=== PATIENT | male | born 1945 | race Caucasian/White ===

== ENCOUNTER 2016-06-01 18:01 | Emergency (ER) | payer OTHER, MEDICARE ==
[~2016-06-01] VITALS: Ht 188 cm; Wt 83.5 kg
[~2016-06-01 18:01] MED LIST: CREON PO; LANTUSP SQ; PIOG15 PO; PRIN5TAB PO; TAMS0.4C67 PO
[2016-06-01 18:02] VITALS: BP 150/62; PULSE 111; RESP 14; TEMP 99.4; O2SAT 96
[2016-06-01] MEDS ORDERED: CREO3000 PO (21:49)
[2016-06-01] MEDS ORDERED: LANTUS2P SQ (21:51)
[2016-06-01] MEDS ORDERED: LEVO25TA4 PO (21:51)
[2016-06-01] MEDS ORDERED: LISI-519 PO (21:51)
[2016-06-01] MEDS ORDERED: NOVORP2 SQ (21:52)
[2016-06-01] MEDS ORDERED: FINA5TAB2 PO (21:53)
[2016-06-01] MEDS ORDERED: SODIUM CHLORID 0.9% 500 ML INJ 500 ML IV ONE (22:00)
--- NOTE | 2016-06-01 22:19 | PD ---
HPI Chief Complaint: Pain: Acute or Chronic Time Seen by Provider: 21:44 Travel History International Travel<30 days: No Contact w/Intl Traveler<30days: No Traveled to known affect area: No History of Present Illness HPI Patient is a 70 year old male who comes in complaining of pain to his right thigh. He says it started about 1PM today. He says he has been walking a lot lately, but the pain started while he was sitting and watching television. He says that the pain is sharp and he localizes it to the top of his thigh just above the knee. He denies any injuries. He denies any chest pain or SOB. He says he came in because he was concerned about a blood clot because he says his dad of a stroke 7 years ago. He has no history of blood clots in the past. He denies recent travel. He has not had any swelling to his legs. PFSH Past Medical History Heart Rhythm Problems: No Cancer: Yes (PANCREAS) Cardiac Catheterization: No Cardiovascular Problems: No High Cholesterol: No Congestive Heart Failure: No Diabetes: No Hypertension: No Myocardial Infarction: No Past Surgical History Abdominal Surgery: Yes (1/3 OF PANCREASE REMOVED/ SOME SMALL INTESTINE REMOVED / WHIPPLE PROCEDURE) Cholecystectomy: Yes (POSSIBLY REMOVED WITH WHIPPLE PROCEDURE) Coronary Artery Bypass Graft: No Genitourinary Surgery: Yes (LEFT SCROTAL MASS REMOVED) Social History Alcohol Use: No Tobacco Use: No Substance Use: No Allergies-Medications (Allergen,Severity, Reaction): Coded Allergies: Heparin (Verified Allergy, Severe, BLEEDING, 06/01/16) Reported Meds & Prescriptions Reported Meds & Active Scripts Active Reported Finasteride 5 Mg Tab 5 Mg PO DAILY Do not crush. Levothyroxine (Levothyroxine Sodium) 25 Mcg Tab 25 Mcg PO DAILY Lisinopril 5 Mg Tab 5 Mg PO DAILY Lantus Inj (Insulin Glargine) 1,000 Unit/10 Ml Vial 25 Units SQ HS Creon (Pancrelipase) 3,000-9,500-15,000 Units Cap 1 Cap PO TIDPC Review of Systems Except as stated in HPI: all other systems reviewed are Neg General / Constitutional: No: Fever, Chills HENT: No: Headaches, Lightheadedness Cardiovascular: No: Chest Pain or Discomfort Respiratory: No: Shortness of Breath Gastrointestinal: No: Nausea, Vomiting Musculoskeletal: Positive: Pain, No: Edema Skin: No Rash, No Change in Pigmentation Neurologic: No: Weakness, Dizziness Physical Exam Narrative GENERAL: Awake and alert in no acute distress. SKIN: Warm and dry. HEAD: Atraumatic. Normocephalic. EYES: Pupils equal and round. No scleral icterus. ENT: Mucous membranes pink and moist. NECK: Trachea midline. No JVD. CARDIOVASCULAR: Regular rate and rhythm. No murmur appreciated. RESPIRATORY: No accessory muscle use. Clear to auscultation. Breath sounds equal bilaterally. MUSCULOSKELETAL: No obvious deformities. No clubbing. No cyanosis. No edema. No tenderness to palpation of the right calf or right thigh. Patient has full range of motion of the right hip and right knee. He has some pain with movement of the right leg. Pedal pulses are intact. NEUROLOGICAL: Awake and alert. No obvious cranial nerve deficits. Motor grossly within normal limits. Normal speech. Data Data Last Documented VS Vital Signs Date Time Temp Pulse Resp B/P Pulse Ox O2 Delivery O2 Flow Rate FiO2 06/01/16 21:45 85 20 06/01/16 18:02 99.4 150/62 96 Room Air Orders Us Leg Venous Doppler (06/01/16 ) Complete Blood Count With Diff (06/01/16 21:52) Comprehensive Metabolic Panel (06/01/16 21:52) Creatine Kinase (Cpk) (06/01/16 21:52) Sodium Chlorid 0.9% 500 Ml Inj (Ns 500 M (06/01/16 22:00) Ketorolac Inj (Toradol Inj) (06/02/16 00:15) Labs Laboratory Tests Test 06/01/16 22:00 White Blood Count 8.4 TH/MM3 Red Blood Count 4.12 MIL/MM3 Hemoglobin 12.7 GM/DL Hematocrit 37.9 % Mean Corpuscular Volume 92.1 FL Mean Corpuscular Hemoglobin 30.9 PG Mean Corpuscular Hemoglobin 33.6 % Concent Red Cell Distribution Width 12.8 % Platelet Count 180 TH/MM3 Mean Platelet Volume 7.8 FL Neutrophils (%) (Auto) 80.0 % Lymphocytes (%) (Auto) 10.2 % Monocytes (%) (Auto) 8.5 % Eosinophils (%) (Auto) 0.8 % Basophils (%) (Auto) 0.5 % Neutrophils # (Auto) 6.7 TH/MM3 Lymphocytes # (Auto) 0.9 TH/MM3 Monocytes # (Auto) 0.7 TH/MM3 Eosinophils # (Auto) 0.1 TH/MM3 Basophils # (Auto) 0.0 TH/MM3 CBC Comment DIFF FINAL Differential Comment Sodium Level 134 MEQ/L Potassium Level 4.1 MEQ/L Chloride Level 98 MEQ/L Carbon Dioxide Level 27.2 MEQ/L Anion Gap 9 MEQ/L Blood Urea Nitrogen 24 MG/DL Creatinine 1.64 MG/DL Estimat Glomerular Filtration 42 ML/MIN Rate Random Glucose 396 MG/DL Calcium Level 8.4 MG/DL Total Bilirubin 0.5 MG/DL Aspartate Amino Transf 31 U/L (AST/SGOT) Alanine Aminotransferase 60 U/L (ALT/SGPT) Alkaline Phosphatase 98 U/L Total Creatine Kinase 125 U/L Total Protein 6.7 GM/DL Albumin 3.7 GM/DL MDM Medical Decision Making Medical Screen Exam Complete: Yes Emergency Medical Condition: Yes Differential Diagnosis Muscle strain versus DVT versus cellulitis Narrative Course Patient is a 70-year-old male comes in complaining of right leg pain. Exam shows no swelling, no erythema or warmth. Patient does have pain with movement of his leg. IV established, labs sent. Labs show a creatinine of 1.6. Ultrasound performed of the right leg shows no evidence of DVT. Patient informed of his creatinine level. Advised follow-up with his primary doctor regarding this. He understands and will see his doctor. His sugar was also elevated, he was given IV fluids. Advised to continue his diabetes medications at home. Patient advised to increase his water intake. Advised to take Tylenol as needed for pain. Advised to apply ice or heat, and stretch the leg. His pain is likely muscular. Patient advised to return to the ED as needed for any worsening symptoms. He is comfortable with discharge at this time. Diagnosis Primary Impression: Leg pain Qualified Code: M79.604 - Pain of right lower extremity Patient Instructions: General Instructions, Leg Pain (ED) Additional Instructions: Take Tylenol as needed for pain. You can apply ice or heat to the muscle. Make sure to stretch your leg often. Your Creatinine was elevated today ( kidney function test) to 1.6. You need to follow up with your doctor regarding this. Return to the ED as needed for any worsening symptoms. Disposition: 01 DISCHARGE HOME Condition: Stable Gershen,Edilma B MD Jun 01, 2016 22:19 Edilma Fink MD Jun 01, 2016 22:19
[2016-06-01 22:23] LABS: AUTOMATED NEUTROPHIL # 6.7 TH/MM3 (1.8-7.7); BASOPHIL % 0.5 % (0.0-2.0); EOSINOPHIL # 0.1 TH/MM3 (0-0.4); EOSINOPHIL % 0.8 % (0.0-4.0); HEMATOCRIT 37.9 % (39.0-51.0); HEMO FLAGS DIFF FINAL; LYMPH % 10.2 % (9.0-44.0); LYMPHOCYTE # 0.9 TH/MM3 (1.0-4.8); MEAN CELL VOLUME 92.1 FL (80.0-100.0); MEAN CORPUSCULAR HEMOGLOBIN 30.9 PG (27.0-34.0); MEAN CORPUSCULAR HGB CONC 33.6 % (32.0-36.0); MONO % 8.5 % (0.0-8.0); PLATELET COUNT 180 TH/MM3 (150-450); RED BLOOD COUNT 4.12 MIL/MM3 (4.50-5.90); RED CELL DISTRIBUTION WIDTH 12.8 % (11.6-17.2); WHITE BLOOD COUNT 8.4 TH/MM3 (4.0-11.0)
[2016-06-01 22:39] LABS: ANION GAP 9 MEQ/L (5-15); AST (GOT) 31 U/L (15-37); BICARBONATE 27.2 MEQ/L (21.0-32.0); BLOOD UREA NITROGEN 24 MG/DL (7-18); CHLORIDE 98 MEQ/L (98-107); GLOMERULAR FILTRATION RATE 42 ML/MIN (>89); POTASSIUM 4.1 MEQ/L (3.5-5.1); SODIUM (NA) 134 MEQ/L (136-145)
[2016-06-01 22:42] LABS: ALKALINE PHOSPHATASE 98 U/L (45-117); ALT (GPT) 60 U/L (12-78); CREATINE KINASE 125 U/L (39-308); TOTAL BILIRUBIN ADULT 0.5 MG/DL (0.2-1.0)
--- NOTE | 2016-06-01 23:24 | RADRPT ---
EXAM DATE/TIME: 06/01/2016 22:17 [facility] COMPARISON: No previous studies available for comparison. INDICATIONS : Right lower extremity pain. MEDICAL HISTORY : Carcinoma, pancreas. SURGICAL HISTORY : Cholecystectomy. Third of pancreas removed. Small intestine removal. Whippl e procedure. Left scrotal mass removed. ENCOUNTER: Initial ACUITY: 1 day PAIN SCORE: 8/10 LOCATION: Right leg. TECHNIQUE: Venous ultrasound of the leg was performed from the inguinal ligament to the proximal calf. Real-time, color Doppler and spectral tracing, compression and augmentation techniques were us ed. FINDINGS: There is normal compressibility of the deep venous system from the inguinal region to the proximal ca lf. No echogenic clot is seen in the lumen of the common femoral, femoral, popliteal, and posterior tibial veins. There is a normal response of the venous system to proximal and distal augmentation an d respiration. CONCLUSION: No DVT in the right leg. Felipe Reyez MD on June 01, 2016 at 23:21 Board Certified Radiologist. This report was verified electronically.
[2016-06-02] MEDS ORDERED: KETOROLAC TROMETHAMINE 30 MG/ML (IVP) VIAL IV PUSH ONE (00:15)
== END 2016-06-02 00:56 | disposition home or self-care (01) ==
LOC: NEPE 18:01
DX: M79.651 Pain in right thigh (principal)
CPT/HCPCS: 80053; 82550; 85025; 93971; 96374; 99284; J1885; J7040